=== PATIENT | male | born 1935 | race Caucasian/White ===

== ENCOUNTER 2016-08-10 05:30 | Inpatient (IN) | payer OTHER ==
[2016-08-02 13:01] LABS: HEMOGLOBIN 12.8 gm/dL (14.0-18.0); MCH 33.9 pg (26.0-34.0); MCHC 34.5 g/dL (28.0-37.0); MCV 98.2 fL (80.0-100.0); RBC 3.77 mil/uL (4.50-6.00); RDW 14.5 % (10.5-14.5); WBC 7.7 thou/uL (4.0-11.0)
[2016-08-02 13:14] LABS: ALBUMIN 4.4 g/dL (3.4-5.0); POTASSIUM 4.1 mmol/L (3.5-5.1)
[2016-08-02 13:16] LABS: PROTIME 10.8 Seconds (9.3-11.4)
[2016-08-02 16:00] LABS: URINE BILIRUBIN NEGATIVE (Negative); URINE BLOOD NEGATIVE (Negative); URINE COLOR YELLOW; URINE GLUCOSE-RANDOM* NEGATIVE (Negative); URINE KETONES NEGATIVE (Negative); URINE LEUKOCYTES-REFLEX NEGATIVE (Negative); URINE PROTEIN (DIPSTICK) NEGATIVE (Negative); URINE SPECIFIC GRAVITY >= 1.030 (1.003-1.035); URINE UROBILINOGEN 0.2 E.U./dl (0.2-1.0)
[~2016-08-10] VITALS: Ht 175.3 cm; Wt 84.8 kg
[2016-08-10] VITALS (9 sets, daily range): BP systolic 107–142; BP diastolic 56–76
--- NOTE | ~2016-08-10 | H ---
[facility] [place] [address] HISTORY AND PHYSICAL Name: LOVE ALVES Room #: 544-P DIS IN M.R.#: [id number] Admission: 08/10/16 Attend Phys: Bentley Ramirez MD Discharge: 08/13/16 Date of : 33 Report #: [id number] THIS REPORT FOR: //name// For History and Physical, please see office documentation/handwritten note in the patient's medical record. <ELECTRONICALLY SIGNED> By: Bentley Ramirez MD 08/17/16 0720 1226 Bentley Ramirez MD /
--- NOTE | ~2016-08-10 | O ---
[facility] [place] [address] [place] [address] OPERATIVE REPORT Name: LONGLOVE Saundra Room #: 544-P DIS IN M.R.#: [id number] Admission: 08/10/16 Attend Phys: Bentley Ramirez MD Discharge: 08/13/16 Date of : 33 Report #: [id number] THIS REPORT FOR: //name// CC: Jaya Ramirez DATE OF SERVICE: 08/10/2016 PREOPERATIVE DIAGNOSIS: Right knee degenerative joint disease, severe. POSTOPERATIVE DIAGNOSIS: Right knee degenerative joint disease, severe. PROCEDURE: Right total knee arthroplasty. SURGEON: Bentley Ramirez MD. BOILER FITTER: Jeffy Moore, nurse practitioner. INDICATIONS FOR BOILER FITTER: During the course of operation, extensive manipulation, retraction and limb positioning was required. This was afforded to me by my assistant site manager. ANESTHESIA: General. INDICATIONS: See hospital H and P. IMPLANTS UTILIZED: We used a DePuy PFC knee system. We used a cruciate retaining femoral component of size 5. We used a size 5 tibial tray with 10 mm insert and a 41 mm oval dome patella. DESCRIPTION OF PROCEDURE: After adequate general anesthesia had been obtained, the patient's right lower extremity was prepped and draped in the usual meticulous sterile fashion. Limb was exsanguinated with gravity. Tourniquet was inflated to 350 torr. An anterior midline incision was made, subQ divided sharply. Hemostasis obtained with electrocautery. Medial parapatellar incision was made. Infrapatellar fat pad excised. Medial release performed. The drill was used to drill the distal femur. This hole was enlarged, irrigated, suctioned, and the intramedullary guide placed the full length of the femur. Valgus angle set at 5 degrees, which matched the patient's anatomy. The distal femoral cutting guide pinned into place, and the distal femoral cut was made. We used a measurement device and determined that the size 5 as appropriate size for this patient. We marked the distal femur, impacted the cutting guide into place, and the anterior, posterior, and chamfer cuts were made. Rongeur was used to remove additional osteophytes. [facility] [address] [place] [address] OPERATIVE REPORT Name: LOVE ALVES Room #: 544-P DIS IN M.R.#: [id number] Admission: 08/10/16 Attend Phys: Bentley Ramirez MD Discharge: 08/13/16 Date of : 33 Report #: [id number] At this time, the ACL was transected, tibia translated anteriorly, menisci were excised. Drill was used to drill the central portion of the tibia. This hole was enlarged, irrigated, suctioned, and the intramedullary guide placed the full length of the tibia. Proximal tibial cutting guide placed at appropriate height. Proximal tibia cut was made. 5 tray gave us the best coverage on the tibia. We then put the trial components in position and with 10 spacer, we had the best flexion and extension gap. Patella tracked normally. At this time, patella was measured, cutting guide clamped into place, patellar cut was made. A 41 template gave us the best coverage. Pedicles were drilled, trial components were put in position, it tracked normally. At this time, tibial tray rotation marked, distal femur drilled. Trial components were removed. Tibial keel cuts were made. The knee was irrigated with both pulse lavage and antibiotic irrigation. Bone plugs were placed to the proximal tibia and distal femur. The cement was vacuum mixed, and when it reached the appropriate consistency, the knee was thoroughly dried, the tibial tray was cemented in to place. Excess cement was removed. The liner was impacted in to place, and the femur impacted in to place. The knee was taken out to 30 degrees of flexion with uniform compression placed across the components. Patellar button was then cemented into place and again excess cement was removed. Irrigation was placed in the wound and allowed to rest in the wound until the cement fully cured. When it had done so, the knee was irrigated, dried thoroughly, and inspected. Drains were placed superolaterally, both deep and superficial. The retinacular layer closed with a combination of an interrupted [id number] #1 Vicryl, as well as running #1 Tevdek. SubQ closed with 2-0 Monocryl. Skin closed with tien. Sterile compressive dressing was applied. Tourniquet deflated. <ELECTRONICALLY SIGNED> By: Bentley Ramirez MD 08/17/16 0720 0833 1055 Bentley Ramirez MD /nt
[~2016-08-10 05:30] MED LIST: CO Q-10100 MG PO; COCONUT OIL100 GM PO; DAILY MULTIPLE1 EACH PO; MAGNESIUM CITR100 MG PO; MCT OIL PO; PROTANDIM PO; VISION VITAMIN1 EAC1 PO; VITAMIN D-32000 UNIT PO; VITAMINC500 PO; [UNRECOGNIZED DRUG - OTHER] PO
[2016-08-11] VITALS (7 sets, daily range): BP systolic 107–147; BP diastolic 48–63
[2016-08-11 05:54] LABS: ABSOLUTE NEUTROPHILS 6.1 thou/uL (1.4-8.2); BASOPHILS 1.5 % (0.0-2.0); HEMATOCRIT 27.8 % (42.0-52.0); HEMOGLOBIN 9.7 gm/dL (14.0-18.0); LYMPHOCYTES 19.3 % (24.0-44.0); MCH 34.7 pg (26.0-34.0); MCHC 34.8 g/dL (28.0-37.0); MCV 99.5 fL (80.0-100.0); MONOCYTES 9.8 % (1.0-8.0); PLATELET COUNT 221 thou/uL (150-400); POLYS 65.4 % (36.0-66.0); RBC 2.79 mil/uL (4.50-6.00); RDW 14.1 % (10.5-14.5); WBC 9.4 thou/uL (4.0-11.0)
[2016-08-11 05:56] LABS: MANUAL DIFF NO
[2016-08-11 06:06] LABS: CALCIUM 7.8 mg/dL (8.5-10.1); CREATININE 1.3 mg/dL (0.7-1.3); MAGNESIUM 1.7 mg/dL (1.8-2.4); POTASSIUM 3.8 mmol/L (3.5-5.1)
[2016-08-12 04:00] VITALS: BP 107/55
[2016-08-12 05:38] LABS: HEMATOCRIT 24.9 % (42.0-52.0); HEMOGLOBIN 8.6 gm/dL (14.0-18.0); MCH 34.3 pg (26.0-34.0); MCHC 34.6 g/dL (28.0-37.0); MCV 99.1 fL (80.0-100.0); RBC 2.51 mil/uL (4.50-6.00); RDW 14.1 % (10.5-14.5); WBC 9.4 thou/uL (4.0-11.0)
[2016-08-12 08:19] VITALS: BP 108/63
[2016-08-12 08:21] VITALS: BP 108/63
[2016-08-12 16:43] VITALS: BP 152/69
[2016-08-12 20:00] VITALS: BP 130/55
[2016-08-13 04:08] VITALS: BP 126/56
[2016-08-13 06:14] LABS: HEMATOCRIT 29.3 % (42.0-52.0); HEMOGLOBIN 10.1 gm/dL (14.0-18.0); MCH 34.2 pg (26.0-34.0); MCHC 34.3 g/dL (28.0-37.0); MCV 99.8 fL (80.0-100.0); RBC 2.94 mil/uL (4.50-6.00); RDW 14.2 % (10.5-14.5); WBC 9.7 thou/uL (4.0-11.0)
[2016-08-13] MEDS ORDERED: XARELTO10 MG PO (07:09)
[2016-08-13] MEDS ORDERED: PERCOCET 10-321 EACH PO (07:09)
[2016-08-13 07:47] VITALS: BP 123/60
[2016-08-13] MEDS ORDERED: ONDANSETRON HCL4 M2 PO (10:25)
[2016-08-13 14:01] VITALS: BP 122/48
[2016-08-13 16:17] VITALS: BP 126/55
== END 2016-08-13 17:44 | disposition home health service (06) | DRG 470 ==
LOC: 5S 05:30 → TBA 05:30 → PRE 06:17 → 5S 10:19 → PRE 10:26 → 5S 08-13 17:44
PROVIDERS: Nurse Practitioner; Orthopaedic Surgery
PROC: 0SRC0J9 Replacement of Right Knee Joint with Synthetic Substitute, Cemented, Open Approach (ICD-10-PCS; principal; 2016-08-10)
DX: M17.11 Unilateral primary osteoarthritis, right knee (principal); D64.9 Anemia, unspecified; D63.8 Anemia in other chronic diseases classified elsewhere; R11.0 Nausea; Z98.52 Vasectomy status; Z79.899 Other long term (current) drug therapy
CPT/HCPCS: 10785; 50010; 50101; 50415; 50954; 51130; 51225; 51320; 51412; 51771; 52001; 52282; 53000; 53078; 53364; 56525; 56527; 62110; 62900; 64042; 64043; 70005

== ENCOUNTER → 2018-10-10 | Outpatient (CLI) | payer OTHER ==
[~2018-10-10] MED LIST changes: +ONDANSETRON HCL4 M2 PO; +PERCOCET 10-321 EACH PO; +XARELTO10 MG PO
--- NOTE | 2018-10-10 09:42 | 2DMMODE ---
[facility] [place] [address] 2 D/M-MODE ECHOCARDIOGRAM Name: LOVE ALVES Room #: REG Neal#: [id number] ������������� Admission: 10/10/18 ������������� Attend Phys: Wilfred Shelton Discharge: ��� ������������� ��� Date of : 33 Date of Service: 10/10/18 0942 �� Report #: [id number] �������� ��������������������������������������������[id number] THIS REPORT FOR: //name// APPROVED REPORT Study performed: 10/10/2018 08:10:33 EXAM: Comprehensive 2D, Doppler, and color-flow Echocardiogram Patient Location: Out-Patient Room #: Echo Lab 2 Status: routine BSA: 1.93 HR: 66 bpm BP: 132/68 mmHg Rhythm: NSR Other Information Study Quality: Good Indications Aortic Valve Disease 2D Dimensions RVDd: 36.28 mm IVSd: 9.13 (7-11mm) LVOT Diam: 19.66 (18-24mm) LVDd: 44.22 mm PWd: 5.45 (7-11mm) Ascending Ao: 37.67 (22-36mm) LVDs: 23.68 (25-40mm) Aortic Root: 38.38 mm IVC: 12.00 mm Volumes Left Atrial Volume (Systole) Single Plane 4CH: 55.06 mL Single Plane 2CH: 83.41 mL LA ESV Index: 39.00 mL/m2 Aortic Valve AoV Peak Lencho.: 3.08 m/s AO Peak Gr.: 38.02 mmHg LVOT Max P.86 mmHg AO Mean Gr.: 19.72 mmHg LVOT Mean P.42 mmHg AO V2 Mean: 2.10 m/s LVOT Max V: 1.06 m/s AO V2 VTI: 70.85 cm LVOT Mean V: 0.73 m/s OSCAR (VTI): 0.92 cm2 LVOT V1 VTI: 21.57 cm OSCAR Vmax: 1.04 cm2 SV (LVOT): 65.47 mL [facility] [place] [address] 2 D/M-MODE ECHOCARDIOGRAM Name: LOVE ALVES Room #: [facility]#: [id number] ������������� Admission: 10/10/18 ������������� Attend Phys: Wilfred Shelton Discharge: ��� ������������� ��� Date of : 33 Date of Service: 10/10/18 0942 �� Report #: [id number] �������� ��������������������������������������������[id number] Mitral Valve E/A Ratio: 1.0 MV Decel. Time: 270.93 ms MV E Max Lencho.: 0.93 m/s MV A Lencho.: 0.97 m/s MV PHT: 78.57 ms IVRT: 92.27 ms Pulmonary Valve PV Peak Lencho.: 1.14 m/s PV Peak Gr.: 5.23 mmHg Pulmonary Vein P Vein S: 0.89 m/s P Vein A: 0.34 m/s P Vein D: 0.47 m/s P Vein A Dur.: 129.2 msec P Vein S/D Ratio: 1.89 Tricuspid Valve TR Peak Lencho.: 2.62 m/s TR Peak Gr.: 27.45 mmHg PA Pressure: 32.00 mmHg Left Ventricle The left ventricle is normal size. There is normal left ventricular wall thickness. The left ventricular systolic function is normal. The left ventricular ejection fraction is within the normal range. LVEF is 60-65%. Moderate diastolic dysfunction is present (pseudonormal filling). Right Ventricle The right ventricle is normal size. The right ventricular systolic function is normal. Atria Left atrium is borderline dilated. Right atrium is at the upper limits of normal. Aortic Valve Aortic valve is calcified. No aortic regurgitation is present. Significant aortic stenosis. Vmax 3.08 m/s calculated. OSCAR 1.1 cm2 Mitral Valve The mitral valve is normal in structure. Mild mitral regurgitation. No evidence of mitral valve stenosis. Tricuspid Valve [address] [address] 2 D/M-MODE ECHOCARDIOGRAM Name: LOVE ALVES Room #: [facility] Neal#: [id number] ������������� Admission: 10/10/18 ������������� Attend Phys: Wilfred Shelton Discharge: ��� ������������� ��� Date of : 33 Date of Service: 10/10/18 0942 �� Report #: [id number] �������� ��������������������������������������������[id number] The tricuspid valve is normal in structure. There is mild tricuspid regurgitation. Estimated PAP is 32mmHg. There is mild pulmonary hypertension. Pulmonic Valve The pulmonary valve is normal in structure. There is no pulmonic valvular regurgitation. Great Vessels The aortic root is normal in size. IVC is normal in size and collapses >50% with inspiration. Pericardium There is no pericardial effusion. <Conclusion> The left ventricle is normal size. LVEF is 60-65%. Left atrium is borderline dilated. Aortic valve is calcified. No aortic regurgitation is present. Significant aortic stenosis. Vmax 3.08 m/s calculated. OSCAR 1.1 cm2 The mitral valve is normal in structure. Mild mitral regurgitation. The tricuspid valve is normal in structure. There is mild tricuspid regurgitation. Estimated PAP is 32mmHg. There is mild pulmonary hypertension. The pulmonary valve is normal in structure. There is no pericardial effusion. ��������������������������������������������� <ELECTRONICALLY SIGNED> ���������������������������������������� By: Obey Loera MD ��������������������������������������������� 10/10/18 0942 0942 0942 Obey Loera MD /INF
== END ==
LOC: CV 08:01
DX: I08.1 Rheumatic disorders of both mitral and tricuspid valves (principal); I27.20 Pulmonary hypertension, unspecified